=== PATIENT | female | born 1950 | race Caucasian/White ===

== ENCOUNTER 2023-04-02 10:42 | Emergency (ER) | payer SELFPAY ==
[~2023-04-02] VITALS: Ht 170.2 cm; Wt 90.9 kg
[2023-04-02 10:49] VITALS: TEMP 98.6
[2023-04-02] MEDS ORDERED: TraMADol HCL 50 MG TABLET PO ONE (15:15)
[2023-04-02 15:19] VITALS: BP 142/89; PULSE 82; RESP 18
== END 2023-04-02 15:21 | disposition home or self-care (01) ==
LOC: EMS 10:42
DX: M25.561 Pain in right knee (principal); Z88.0 Allergy status to penicillin
CPT/HCPCS: 99283